=== PATIENT | female | born 1955 | race Caucasian/White ===

== ENCOUNTER 2017-08-21 17:15 | Emergency (ER) | payer BC ==
--- NOTE | 2017-08-21 17:36 | Emergency Department Record ---
History of Present Illness - General Chief complaint: Swelling of legs Stated complaint: BOTH LEG SWELLING Time Seen by Provider: 08/21/17 17:30 Source: Patient, RN notes reviewed Mode of Arrival: Ambulatory - History of Present Illness Initial comments: bilateral leg edema right worse than left and right hip replacement 7 days ago at [facility] and she was at physical therapy today first visit and came down to have her legs checked. 24 pound weight gain since surg. both knees replaced years ago. History of RA. Patient is wearing compression socks. off to exam. Pulses good Onset/Timin -: Days(s) Location: Bilateral, Lower Leg History of Same: No Radiation: None Severity scale (1-10): 2 Quality: Aching Consistency: Constant Improves with: Nothing Worsens with: Nothing Associated Symptoms: Denies other symptoms - Related Data Home Medications Medication Instructions Recorded Confirmed Last Taken Aspirin 325 mg PO BID 08/21/17 08/21/17 08/21/17 Hydrocodone/Acetaminophen [[place] 1 each PO Q4H 08/21/17 08/21/17 08/21/17 7.5-325 Tablet] Previous Rx's Medication Instructions Recorded Furosemide [Lasix] 20 mg PO DAILY #30 tablet 08/21/17 Furosemide [Lasix] 20 mg PO DAILY #30 tablet 08/21/17 Potassium Chloride 10 meq PO DAILY #30 tablet.er 08/21/17 Potassium Chloride 10 meq PO DAILY #30 tablet.er 08/21/17 Allergies Allergy/AdvReac Type Severity Reaction Status Date / Time cephalexin monohydrate Allergy RASH Verified 08/21/17 17:27 [From Keflex] erythromycin base Allergy RASH Verified 08/21/17 17:27 [Erythromycin Base] latex Allergy RASH Verified 08/21/17 17:27 Travel Screening - Travel/Exposure Within Last 30 Days Have you traveled within the last 30 days?: No Review of Systems Reviewed: No additional complaints except as noted below Constitutional: Reports: As per HPI. Denies: Chills, Fever, Malaise, Night sweats, Weakness, Weight change Eyes: Reports: As per HPI. Denies: Eye discharge, Eye pain, Photophobia, Vision change ENT: Reports: As per HPI. Denies: Congestion, Dental pain, Ear pain, Epistaxis , Hearing loss, Throat pain Respiratory: Reports: As per HPI. Denies: Cough, Dyspnea, Hemoptysis, Stridor, Wheezes Cardiovascular: Reports: As per HPI, Edema. Denies: Arrhythmia, Chest pain, Dyspnea on exertion, Murmurs, Orthopnea, Palpitations, Paroxysmal nocturnal dyspnea, Rheumatic Fever, Syncope Endocrine: Reports: As per HPI. Denies: Fatigue, Heat or cold intolerance, Polydipsia, Polyuria Gastrointestinal: Reports: As per HPI. Denies: Abdominal pain, Constipation, Diarrhea, Hematemesis, Hematochezia, Melena, Nausea, Vomiting Genitourinary: Reports: As per HPI. Denies: Abnormal menses, Discharge, Dyspareunia, Dysuria, Frequency, Hematuria, Incontinence, Retention, Urgency Musculoskeletal: Reports: As per HPI. Denies: Arthralgia, Back pain, Gout, Joint swelling, Myalgia, Neck pain Skin: Reports: As per HPI. Denies: Bruising, Change in color, Change in hair/ nails, Lesions, Pruritus, Rash Neurological: Reports: As per HPI. Denies: Abnormal gait, Confusion, Headache, Numbness, Paresthesias, Seizure, Tingling, Tremors, Vertigo, Weakness Psychiatric: Reports: As per HPI. Denies: Anxiety, Auditory hallucinations, Depression, Homicidal thoughts, Suicidal thoughts, Visual hallucinations Hematological/Lymphatic: Reports: As per HPI. Denies: Anemia, Blood Clots, Easy bleeding, Easy bruising, Swollen glands Past Medical History - SOCIAL HISTORY Smoking Status: Never smoker Alcohol Use: None Drug Use: None - RESPIRATORY Hx Respiratory Disorders: Yes Hx Asthma: Yes - CARDIOVASCULAR Hx Cardio Disorders: No - NEURO Hx Neuro Disorders: No - GI Hx GI Disorders: No - Hx Genitourinary Disorders: No - ENDOCRINE Hx Endocrine Disorders: No - MUSCULOSKELETAL Hx Musculoskeletal Disorders: Yes Hx Arthritis: Yes (RA) - PSYCH Hx Psych Problems: No - HEMATOLOGY/ONCOLOGY Hx Hematology/Oncology Disorders: Yes Hx Anemia: Yes Hx Blood Transfusions: Yes Hx Blood Transfusion Reaction: No Family Medical History Any Significant Family History?: Yes Hx Cancer: Father, Mother Hx Resp Disorders: Mother Physical Exam - General General Appearance: Alert, Oriented x3, Cooperative, No acute distress - Head Head exam: Normal inspection - Eye Eye exam: Normal appearance, PERRL Pupils: Normal accommodation - ENT ENT exam: Normal exam, Mucous membranes moist, Normal external ear exam, Normal orophraynx, TM's normal bilaterally Ear exam: Normal external inspection. negative: External canal tenderness Nasal Exam: Normal inspection. negative: Discharge, Sinus tenderness Mouth exam: Normal external inspection, Tongue normal Teeth exam: Normal inspection. negative: Dental caries Throat exam: Normal inspection. negative: Tonsillar erythema, Tonsillar exudate - Neck Neck exam: Normal inspection, Full ROM. negative: Tenderness - Respiratory Respiratory exam: Normal lung sounds bilaterally. negative: Respiratory distress - Cardiovascular Cardiovascular Exam: Regular rate, Normal rhythm, Normal heart sounds - GI/Abdominal GI/Abdominal exam: Soft, Normal bowel sounds. negative: Tenderness - Rectal Rectal exam: Deferred - exam: Deferred - Extremities Extremities exam: Normal capillary refill, Pedal edema, Tenderness - Back Back exam: Reports: Normal inspection, Full ROM. Denies: Muscle spasm, Rash noted, Tenderness - Neurological Neurological exam: Alert, Normal gait, Oriented X3, Reflexes normal - Psychiatric Psychiatric exam: Normal affect, Normal mood - Skin Skin exam: Dry, Intact, Normal color, Warm Course Vital Signs 08/21/17 17:19 Temperature 97.5 F L Pulse Rate 79 Respiratory 16 Rate Blood Pressure 119/82 Pulse Ox 99 Medical Decision Making - Data Complexity MDM Data: Labs Ordered and/or Reviewed, X-Ray Ordered and/or Reviewed (venous doplers are neg forDVTs) - Lab Data Result diagrams: 08/21/17 17:55 08/21/17 17:55 Disposition Clinical Impression: Lymphedema Edema Qualifiers: Edema type: localized Qualified Code(s): R60.0 - Localized edema Disposition: Home, Self-Care Condition: (1) Good Instructions: Leg Edema (ED) Additional Instructions: follow up with surgeon in 2-6 days or family Prescriptions: Furosemide [Lasix] 20 mg PO DAILY #30 tablet Furosemide [Lasix] 20 mg PO DAILY #30 tablet Potassium Chloride 10 meq PO DAILY #30 tablet.er Potassium Chloride 10 meq PO DAILY #30 tablet.er Forms: Patient Portal Access Time of Disposition: 18:22 Quality - Quality Measures Quality Measures: N/A - Blood Pressure Screening Does Patient Have Any of the Following: No Blood Pressure Classification: Pre-Hypertensive BP Reading Systolic Measurement: 119 Diastolic Measurement: 82 Screening for High Blood Pressure: < Pre-Hypertensive BP, F/U Documented > [ G8950] Pre-Hypertensive Follow-up Interventions: Referral to alternative/primary care provider.
[2017-08-21] MEDS: FUROSEMIDE 20 MG TABLET PO ONE (18:10)
[2017-08-21 18:11] LABS: BASO % 0.8 % (0-6); EOS % 8.3 % (0-6); HEMATOCRIT 27.7 % (35.0-47.0); LYMPH % 16.3 % (16-45); MEAN CELL VOLUME 94.5 fl (81-97); MEAN CORPUSCULAR HEMOGLOBIN 30.7 pg (27-33); MEAN CORPUSCULAR HGB CONC 32.5 g/dl (32-36); MEAN PLATELET VOLUME 8.6 fl (7.4-10.4); MONO % 8.6 % (0-9); PLATELET COUNT 395 K/uL (130-400); RED BLOOD COUNT 2.93 M/uL (3.80-5.40); RED CELL DISTRIBUTION WIDTH 12.5 % (11.5-14.5); WHITE BLOOD COUNT W/O DIFF 10.4 K/uL (4.2-12.2)
[2017-08-21 18:24] LABS: BLOOD UREA NITROGEN 26 mg/dL (8-23); CREATININE 0.7 mg/dL (0.5-0.9); EST GLOMERULAR FILTRATION RATE > 60 mL/min; GLUCOSE,RANDOM 103 mg/dL (74-109)
--- NOTE | 2017-08-22 15:53 | ULTRASOUND REPORT ---
EXAM: ULTRASOUND VENOUS DOPPLER LOWER EXT ANIA HISTORY: RECENT SURGERY, LOWER LEG SWELLING. TECHNIQUE: Sonographic evaluation of the deep venous system of the right and left lower extremity was performed with the addition of Doppler compression and augmentation. FINDINGS: There is normal bloodflow, compression, and augmentation identified in the right and left lower extremities. There is bilateral soft tissue edema. There is a questionable hematoma in the right leg. IMPRESSION: NO SONOGRAPHIC EVIDENCE OF DEEP VEIN THROMBOSIS IN THE RIGHT AND LEFT LOWER EXTREMITIES. THERE IS SOFT TISSUE SWELLING OF BOTH LOWER EXTREMITIES. JOB [facility]BER: [id number] [facility]
== END 2017-08-21 19:20 | disposition home or self-care (01) ==
LOC: ER 17:15
DX: I89.0 Lymphedema, not elsewhere classified (principal); R60.0 Localized edema; Z96.641 Presence of right artificial hip joint
CPT/HCPCS: 80048; 85025; 93970; 99283; 99284

== ENCOUNTER 2017-10-06 11:01 | Emergency (ER) | payer BC ==
--- NOTE | 2017-10-06 11:12 | Emergency Department Record ---
History of Present Illness - General Chief Complaint: Fall Injury Stated Complaint: FALL Time Seen by Provider: 10/06/17 11:07 Source: Patient Mode of Arrival: EMS Limitations: No limitations - History of Present Illness Initial Comments: 62 yp female presents to ED for evaluation of right lower extremity pain following recent YUSUF (08/14/17) and subsequent femur fracture 09/02/17. Patient reports complicatred hospital course following surgery including large femoral hematoma with subsequent blood loss (2 Liters) resulting from her fracture following hip replacement, was at [facility] until 09/17/17 for recovery following 2nd surgery. Patient reports that she elevated her RLE onto a sink to dry off her lower extremity, felt a pop to the right hip followed by pain and instability. Patient was given 200 mcg Fentanyl prior to arrival for pain, improved from 07/16 to 710. MD Complaint: Other Onset/Timin -: Minutes(s) Fall Witnessed: Yes, by family Place Fall Occurred: Home Loss of Consciousness: None Prolonged Down Time?: No Symptoms Prior to Fall: None Location: Other (RLE) Severity: Severe Quality: Aching Associated Symptoms: Denies - Leigh Coma Scale Eye Response: (4) Open spontaneously Motor Response: (6) Obeys commands Verbal Response: (5) Oriented Leigh Total: 15 - Related Data Previous Rx's Medication Instructions Recorded Furosemide [Lasix] 20 mg PO DAILY #30 tablet 08/21/17 Furosemide [Lasix] 20 mg PO DAILY #30 tablet 08/21/17 Potassium Chloride 10 meq PO DAILY #30 tablet.er 08/21/17 Potassium Chloride 10 meq PO DAILY #30 tablet.er 08/21/17 Allergies Allergy/AdvReac Type Severity Reaction Status Date / Time cephalexin monohydrate Allergy RASH Verified 10/06/17 11:13 [From Keflex] erythromycin base Allergy RASH Verified 10/06/17 11:13 [Erythromycin Base] latex Allergy RASH Verified 10/06/17 11:13 Review of Systems Constitutional: Denies: Chills, Fever, Malaise, Night sweats Eyes: Denies: Eye discharge, Eye pain ENT: Denies: Congestion, Ear pain Respiratory: Denies: Cough, Dyspnea Cardiovascular: Denies: Chest pain, Dyspnea on exertion Endocrine: Denies: Fatigue, Heat or cold intolerance Gastrointestinal: Denies: Abdominal pain, Nausea, Vomiting Genitourinary: Denies: Incontinence, Retention Musculoskeletal: Reports: Arthralgia. Denies: Back pain, Gout, Joint swelling Skin: Denies: Bruising, Change in color Neurological: Denies: Abnormal gait, Confusion, Headache, Seizure Psychiatric: Denies: Anxiety Hematological/Lymphatic: Denies: Anemia, Blood Clots Past Medical History - SOCIAL HISTORY Smoking Status: Never smoker Drug Use: None - RESPIRATORY Hx Respiratory Disorders: Yes Hx Asthma: Yes - CARDIOVASCULAR Hx Cardio Disorders: No - NEURO Hx Neuro Disorders: No - GI Hx GI Disorders: No - Hx Genitourinary Disorders: No - ENDOCRINE Hx Endocrine Disorders: No - MUSCULOSKELETAL Hx Musculoskeletal Disorders: Yes Hx Arthritis: Yes (RA) - PSYCH Hx Psych Problems: No - HEMATOLOGY/ONCOLOGY Hx Hematology/Oncology Disorders: Yes Hx Anemia: Yes Hx Blood Transfusions: Yes Hx Blood Transfusion Reaction: No Family Medical History Hx Cancer: Father, Mother Hx Resp Disorders: Mother Physical Exam - General General Appearance: Alert, Oriented x3, Cooperative, Moderate distress Limitations: No limitations - Head Head exam: Atraumatic, Normocephalic, Normal inspection Head exam detail: negative: Abrasion, Contusion, Galo's sign, General tenderness, Hematoma, Laceration - Eye Eye exam: Normal appearance. negative: Conjunctival injection, Periorbital swelling, Periorbital tenderness, Scleral icterus - ENT Ear exam: negative: Auricular hematoma, Auricular trauma Nasal Exam: negative: Active bleeding, Discharge, Dried blood, Foreign body Mouth exam: negative: Drooling, Laceration, Muffled voice, Tongue elevation - Neck Neck exam: Normal inspection. negative: Meningismus, Tenderness - Respiratory Respiratory exam: Normal lung sounds bilaterally. negative: Rales, Respiratory distress, Rhonchi, Stridor - Cardiovascular Cardiovascular Exam: Regular rate, Normal rhythm, Normal heart sounds Peripheral Pulses: 3+: Dorsalis Pedis (R) - GI/Abdominal GI/Abdominal exam: Soft. negative: Rebound, Rigid, Tenderness - Rectal Rectal exam: Deferred - exam: Deferred - Extremities Extremities exam: Tenderness, Other (TTP over right lateral hip, healking incisions x 2 to the lateral hip, shortening of the right lower extremity on examination, strong DPP). negative: Calf tenderness, Pedal edema - Back Back exam: Denies: CVA tenderness (R), CVA tenderness (L) - Neurological Neurological exam: Alert, Oriented X3. negative: Motor sensory deficit - Psychiatric Psychiatric exam: Normal affect, Normal mood - Skin Skin exam: Normal color. negative: Abrasion Type of lesion: negative: abrasion Course - Reevaluation(s) Reevaluation #1: 10/06/17 12:04 Labs reviewed, Hgb 9.9, labs are otherwise grossly unremarkable for an acute process. Radiographs right hip reviewed: Findings are c/w dislocation femoral prosthesis superiorly On-call for Dr. Malcolm jeffries for consultation. Reevaluation #2: 10/06/17 12:21 Case was discussed with Dr. Travis, would like attempt at reduction in ED. Reevaluation #3: 10/06/17 14:16 Post-reduction films appear satisfactory alignment, patient is tolerating PO, knee immobilizer applied, and appears stable for discharge at this time. Procedures - Orthopedic Joint Reduction Joint #1 Consent Obtained: Verbal consent Time Out Performed: Yes Side: Right Joint Reduction Location: Hip Analgesia: None Shoulder Technique Used (if applicable): Traction/counter-traction Technique Used: Traction/counter-traction Post-Reduction Neuro Exam: Intact Post-Reduction Vascular Exam: Intact Post Reduction X-Ray Obtained: Yes Post Reduction X-Ray Results: Reduced Splint Applied: Yes Patient Tolerated Procedure: Good - Procedural Sedation Indications: fracture/dislocation redu ASA Class: II Mallampati Airway Score: 2 Preparation: cloud security architect applied, pulse oximeter, capnometry used, supplemental O2 applied, suction/airway equipment at bedside, IV secured Midazolam: IV Midazolam Dose: 2 IV Etomidate Dose (mgs): 10 Complications: none Patient Tolerated Procedure: Good Sedation Start Date: 10/06/17 Sedation Start Time: 12:35 Sedation End Date: 10/06/17 Sedation End Time: 12:45 Medical Decision Making - Lab Data Result diagrams: 10/06/17 11:25 10/06/17 11:25 Disposition Disposition: Discharge Clinical Impression: Hip dislocation, right Qualifiers: Encounter type: initial encounter Qualified Code(s): S73.004A - Unspecified dislocation of right hip, initial encounter Disposition: Home, Self-Care Condition: (2) Stable Instructions: Hip Dislocation (ED) Additional Instructions: Return to ED if your symptoms worsen or if you have any concerns. Follow-up with Dr. Avendaño in 3-5 days as directed. Forms: Patient Portal Access Time of Disposition: 14:17 Quality - Quality Measures Quality Measures: N/A - Blood Pressure Screening Does Patient Have Any of the Following: No Blood Pressure Classification: Normal BP Reading Systolic Measurement: 101 Diastolic Measurement: 67 Screening for High Blood Pressure: < Normal BP, F/U Not Required > [G8783]
[2017-10-06] MEDS ORDERED: ONDANSETRON HCL IV 4 MG/2 ML VIAL IVP ONE (11:13)
[2017-10-06] MEDS ORDERED: HYDROMORPHONE HCL 1 MG/ML SYRINGE IVP ONE (11:13)
[2017-10-06] MEDS ORDERED: 0.9 % SODIUM CHLORIDE 1000ML 1,000 ML IV SCH (11:15)
[2017-10-06 11:32] LABS: BASO % 1.2 % (0-6); EOS % 4.7 % (0-6); GRAN % 67.8 % (47-80); HEMATOCRIT 31.4 % (35.0-47.0); HEMOGLOBIN 9.9 gm/dl (11.6-16.0); LYMPH % 16.6 % (16-45); MEAN CELL VOLUME 95.2 fl (81-97); MEAN CORPUSCULAR HGB CONC 31.5 g/dl (32-36); MEAN PLATELET VOLUME 8.8 fl (7.4-10.4); MONO % 9.7 % (0-9); PLATELET COUNT 420 K/uL (130-400); RED CELL DISTRIBUTION WIDTH 16.2 % (11.5-14.5); WHITE BLOOD COUNT W/O DIFF 6.6 K/uL (4.2-12.2)
[2017-10-06 11:42] LABS: BLOOD UREA NITROGEN 17 mg/dL (8-23); CREATININE 0.5 mg/dL (0.5-0.9); EST GLOMERULAR FILTRATION RATE > 60 mL/min
[2017-10-06 11:43] LABS: TOTAL PROTEIN 5.9 g/dL (6.6-8.7)
[2017-10-06 11:45] LABS: GLUCOSE,RANDOM 103 mg/dL (74-109)
[2017-10-06 11:48] LABS: ALB/GLOB RATIO 1.6 (1.1-1.8); ALBUMIN 3.6 g/dL (4.0-5.0); ALKALINE PHOSPHATASE 82 U/L (35-104); ALT/SGPT 15 U/L (<33); AST/SGOT 19 U/L (10.0-35.0)
[2017-10-06] MEDS ORDERED: DIAZEPAM 5 MG TABLET PO ONE (12:01)
[2017-10-06] MEDS ORDERED: ETOMIDATE 20MG/10ML VIAL IVP ONE (12:29)
[2017-10-06] MEDS ORDERED: MIDAZOLAM HCL 2MG/2ML VIAL IV ONE (12:29)
--- NOTE | 2017-10-08 00:32 | RADIOLOGY REPORT ---
EXAM: HIP,UNILAT, 2-3 VIEW RIGHT HISTORY: RIGHT HIP DISLOCATION AND PAIN. STATUS POST RIGHT HIP ARTHROPLASTY. TECHNIQUE: An AP view of the pelvis and AP and lateral views of the right hip were obtained. COMPARISON: None. ENCOUNTER: Initial. FINDINGS: The patient is status post right hip arthroplasty. There is superior dislocation of the femoral prosthesis. There is no visible associated fracture. The bony pelvis appears intact. IMPRESSION: SUPERIOR DISLOCATION OF THE RIGHT HIP PROSTHESIS WITH NO VISIBLE ASSOCIATED FRACTURE. JOB NUMBER: [id number] [facility]
--- NOTE | 2017-10-08 00:42 | RADIOLOGY REPORT ---
EXAM: HIP,UNILAT, 2-3 VIEW RIGHT HISTORY: RIGHT HIP DISLOCATION. POSTREDUCTION VIEWS. TECHNIQUE: An AP view of the pelvis and AP and lateral views of the right hip were obtained. COMPARISON: 10/06/2017. FINDINGS: There has been successful reduction of the previously noted right hip dislocation. There is no associated fracture. The prosthesis appears normal. IMPRESSION: SUCCESSFUL REDUCTION OF THE RIGHT HIP PROSTHESIS. JOB NUMBER: [id number] [facility]
== END 2017-10-06 14:35 | disposition home or self-care (01) ==
LOC: ER 11:01
DX: T84.020A Dislocation of internal right hip prosthesis, initial encounter (principal); Y79.2 Prosthetic and other implants, materials and accessory orthopedic devices associated with adverse incidents; X50.0XXA Overexertion from strenuous movement or load, initial encounter; Y92.009 Unspecified place in unspecified non-institutional (private) residence as the place of occurrence of the external cause; Z96.641 Presence of right artificial hip joint
CPT/HCPCS: 99152 ×2; 27265 ×2; 99284 ×2; 96374; 96375; 85025; 80053; 73502; J3490; J2405; J1170; J7030

== ENCOUNTER 2017-10-27 23:55 | Emergency (ER) | payer BC ==
--- NOTE | 2017-10-28 00:06 | Emergency Department Record ---
History of Present Illness - General Chief complaint: Lower Extremity Pain Stated complaint: HIP INJURY Time Seen by Provider: 10/27/17 23:59 Source: Patient, Family Mode of Arrival: EMS Limitations: No limitations - History of Present Illness Initial comments: 62 yo female presents with likely dislocation of the right hip. She reports she was rolling over in bed and felt the hip pop out. She has a history of Hip replacement as well as fracture in August 2017. She had the same hip dislocate October 06. Her surgeon is from [facility]. No numbness or tingling. She has been NPO since 8pm. MD Complaint: Extremity pain, Joint pain -: Minutes(s) Location: Right History of Same: Yes -: Yes Arthralgia Radiation: Proximal Quality: Aching Consistency: Constant Improves with: Nothing Worsens with: Palpation, Weight bearing Associated Symptoms: Denies other symptoms - Related Data Previous Rx's Medication Instructions Recorded Furosemide [Lasix] 20 mg PO DAILY #30 tablet 08/21/17 Furosemide [Lasix] 20 mg PO DAILY #30 tablet 08/21/17 Potassium Chloride 10 meq PO DAILY #30 tablet.er 08/21/17 Potassium Chloride 10 meq PO DAILY #30 tablet.er 08/21/17 Allergies Allergy/AdvReac Type Severity Reaction Status Date / Time cephalexin monohydrate Allergy RASH Verified 10/06/17 11:13 [From Keflex] erythromycin base Allergy RASH Verified 10/06/17 11:13 [Erythromycin Base] latex Allergy RASH Verified 10/06/17 11:13 Review of Systems Constitutional: Denies: Chills, Fever, Malaise, Weakness Eyes: Denies: Eye discharge ENT: Denies: Congestion, Throat pain Respiratory: Denies: Cough, Dyspnea, Hemoptysis, Wheezes Cardiovascular: Denies: Chest pain, Syncope Endocrine: Denies: Fatigue Gastrointestinal: Denies: Abdominal pain, Diarrhea, Nausea, Vomiting Genitourinary: Denies: Dysuria, Urgency Musculoskeletal: Reports: As per HPI, Arthralgia Skin: Denies: Bruising, Change in color, Rash Neurological: Denies: Confusion, Headache, Numbness, Tingling, Weakness Psychiatric: Denies: Anxiety Hematological/Lymphatic: Denies: Easy bleeding, Easy bruising Past Medical History - SOCIAL HISTORY Smoking Status: Never smoker Drug Use: None - RESPIRATORY Hx Respiratory Disorders: Yes Hx Asthma: Yes - CARDIOVASCULAR Hx Cardio Disorders: No - NEURO Hx Neuro Disorders: No - GI Hx GI Disorders: No - Hx Genitourinary Disorders: No - ENDOCRINE Hx Endocrine Disorders: No - MUSCULOSKELETAL Hx Musculoskeletal Disorders: Yes Hx Arthritis: Yes (RA) - PSYCH Hx Psych Problems: No - HEMATOLOGY/ONCOLOGY Hx Hematology/Oncology Disorders: Yes Hx Anemia: Yes Hx Blood Transfusions: Yes Hx Blood Transfusion Reaction: No Family Medical History Hx Cancer: Father, Mother Hx Resp Disorders: Mother Physical Exam - General General Appearance: Alert, Oriented x3, Cooperative, No acute distress Limitations: No limitations - Head Head exam: Atraumatic, Normal inspection - Eye Eye exam: Normal appearance, PERRL - ENT ENT exam: Normal exam, Mucous membranes moist Ear exam: Normal external inspection Nasal Exam: Normal inspection Mouth exam: Normal external inspection Teeth exam: Normal inspection Throat exam: Normal inspection - Neck Neck exam: Normal inspection, Full ROM. negative: Tenderness - Respiratory Respiratory exam: Normal lung sounds bilaterally. negative: Accessory muscle use, Decreased breath sounds, Respiratory distress, Rhonchi, Stridor, Wheezes - Cardiovascular Cardiovascular Exam: Regular rate, Normal rhythm, Normal heart sounds - GI/Abdominal GI/Abdominal exam: Soft. negative: Tenderness - Rectal Rectal exam: Deferred - exam: Deferred - Extremities Extremities exam: Normal capillary refill, Tenderness (right hip, leg shortened) . negative: Normal inspection, Full ROM, Pedal edema - Back Back exam: Denies: CVA tenderness (R), CVA tenderness (L) - Neurological Neurological exam: Alert, Oriented X3. negative: Altered, Motor sensory deficit - Psychiatric Psychiatric exam: Normal affect, Normal mood - Skin Skin exam: Dry, Intact, Normal color, Warm Course - Reevaluation(s) Reevaluation #1: 10/28/17 00:04 EMR reviewed Prior XR [id number] 10/28/17 00:25 consent signed for sedation and closed reduction The XR was reviewed with superior dislocation 10/28/17 00:25 10/28/17 00:51 Procedure Closed Reduction of the right Hip Sedation provided Start Time 0035 End Time 0050 Gentle hip flexion and traction provided with clinic reduction, return of ROM and length. XR ordered 10/28/17 01:04 The post reduction XR ws reviewed with satisfactory reduction She is completely alert, awake with no pain. She tolerated the sedation very well. 10/28/17 01:23 The patient ambulated well DC home Medical Decision Making - Lab Data Result diagrams: 10/27/17 23:40 10/27/17 23:40 Disposition Disposition: Discharge Clinical Impression: Hip dislocation, right Qualifiers: Encounter type: initial encounter Qualified Code(s): S73.004A - Unspecified dislocation of right hip, initial encounter Disposition: Home, Self-Care Condition: (1) Good Instructions: Hip Dislocation (ED) Additional Instructions: Call your orthopedic doctor tomorrow to discuss your recurrent hip dislocation Continue to follow all precautions for your hip Forms: Patient Portal Access Time of Disposition: 01:05 Quality - Quality Measures Quality Measures: N/A - Blood Pressure Screening Does Patient Have Any of the Following: No Blood Pressure Classification: Pre-Hypertensive BP Reading Systolic Measurement: 134 Diastolic Measurement: 87 Screening for High Blood Pressure: < Pre-Hypertensive BP, F/U Documented > [ G8950] Pre-Hypertensive Follow-up Interventions: Referral to alternative/primary care provider.
[2017-10-28 00:07] LABS: BASO % 1.1 % (0-6); EOS % 8.5 % (0-6); GRAN % 58.4 % (47-80); HEMATOCRIT 28.5 % (35.0-47.0); HEMOGLOBIN 9.3 gm/dl (11.6-16.0); LYMPH % 21.6 % (16-45); MEAN CELL VOLUME 92.8 fl (81-97); MEAN CORPUSCULAR HGB CONC 32.6 g/dl (32-36); MEAN PLATELET VOLUME 8.8 fl (7.4-10.4); MONO % 10.4 % (0-9); PLATELET COUNT 559 K/uL (130-400); RED BLOOD COUNT 3.07 M/uL (3.80-5.40); RED CELL DISTRIBUTION WIDTH 16.2 % (11.5-14.5)
[2017-10-28 00:08] LABS: MEAN CORPUSCULAR HEMOGLOBIN 30.2 pg (27-33)
[2017-10-28 00:16] LABS: BLOOD UREA NITROGEN 21 mg/dL (8-23); CREATININE 0.6 mg/dL (0.5-0.9); EST GLOMERULAR FILTRATION RATE > 60 mL/min
[2017-10-28 00:19] LABS: GLUCOSE,RANDOM 124 mg/dL (74-109)
[2017-10-28 00:20] LABS: INR 0.99; PARTIAL THROMBOPLASTIN TIME 29.6 SECONDS (24.5-39.1); PROTHROMBIN TIME (PATIENT) 10.7 SECONDS (9.5-12.1)
[2017-10-28] MEDS ORDERED: MIDAZOLAM HCL 2MG/2ML VIAL IV ONE ×2 (00:22→00:56)
[2017-10-28] MEDS ORDERED: ETOMIDATE 20MG/10ML VIAL IVP ONE (00:22)
[2017-10-28] MEDS ORDERED: FENTANYL PF 100MCG/2ML VIAL IVP ONE ×2 (00:57)
--- NOTE | 2017-10-28 08:31 | RADIOLOGY REPORT ---
EXAM: RIGHT HIP HISTORY: DISLOCATED RIGHT HIP, PAIN WITH LIMITED MOTION OF THE RIGHT HIP. TECHNIQUE: Two AP views of the right hip were obtained. Comparison: Post reduction right hip series dated 10/06/17. Encounter: Initial. FINDINGS: There is superior dislocation of the femoral component of the right YUSUF. No associated fracture identified. IMPRESSION: SUPERIOR DISLOCATION OF THE FEMORAL COMPONENT OF THE RIGHT YUSUF. JOB NUMBER: [id number] [facility]
--- NOTE | 2017-10-28 09:10 | RADIOLOGY REPORT ---
EXAM: RIGHT HIP HISTORY: POST REDUCTION EVALUATION RIGHT HIP. TECHNIQUE: AP and lateral views of the right hip were obtained. Comparison: Right hip series from earlier this morning on 10/28/17 at 12:19 a.m. Encounter: Initial. FINDINGS: Since the prior exam the previously dislocated femoral component of the right YUSUF has been reduced. The tip of the femoral component is not included on the AP view, but no associated fracture identified. IMPRESSION: REDUCTION IN THE PREVIOUSLY SEEN DISLOCATION OF THE FEMORAL COMPONENT OF THE RIGHT YUSUF. JOB NUMBER: [id number] [facility]
== END 2017-10-28 01:44 | disposition home or self-care (01) ==
LOC: ER 23:55
DX: T84.020A Dislocation of internal right hip prosthesis, initial encounter (principal); M06.9 Rheumatoid arthritis, unspecified; X50.0XXA Overexertion from strenuous movement or load, initial encounter; Z96.641 Presence of right artificial hip joint
CPT/HCPCS: 27265; 80048; 85025; 85610; 85730; 96374; 96375; 96376; 99284

== ENCOUNTER 2017-12-14 19:31 | Emergency (ER) | payer BC ==
[2017-12-14] MEDS ORDERED: HYDROMORPHONE HCL 2 MG/ML VIAL IVP ONE ×3 (19:42→20:30)
--- NOTE | 2017-12-14 20:01 | Emergency Department Record ---
History of Present Illness - General Chief complaint: Pain Stated complaint: HIP INJURY Time Seen by Provider: 12/14/17 19:41 Source: Patient Mode of Arrival: EMS Limitations: No limitations - History of Present Illness Initial comments: The patient is here due to dislocating her R hip about an hour ago. She has a hx of R hip replacement 6 months ago and has had 2 dislocations since. Tonight she was sitting and then was getting up from the sitting position and felt the hip pop out. She denies any fall or trauma. MD Complaint: Extremity pain Onset/Timin -: Hour(s) Location: Right History of Same: Yes - Related Data Home Medications Medication Instructions Recorded Confirmed Last Taken Morphine Sulfate [Morphine Sulfate 30 mg PO Q12H 12/14/17 12/14/17 12/14/17 ER] Trazodone HCl 50 mg PO QHS PRN 12/14/17 12/14/17 Unknown Allergies Allergy/AdvReac Type Severity Reaction Status Date / Time cephalexin monohydrate Allergy RASH Verified 10/06/17 11:13 [From Keflex] erythromycin base Allergy RASH Verified 10/06/17 11:13 [Erythromycin Base] latex Allergy RASH Verified 10/06/17 11:13 Travel Screening - Travel/Exposure Within Last 30 Days Have you traveled within the last 30 days?: No - Travel Symptoms Symptom Screening: None Review of Systems Constitutional: Denies: Chills, Fever Past Medical History - SOCIAL HISTORY Smoking Status: Never smoker Alcohol Use: None Drug Use: None - RESPIRATORY Hx Respiratory Disorders: Yes Hx Asthma: Yes - CARDIOVASCULAR Hx Cardio Disorders: No - NEURO Hx Neuro Disorders: No - GI Hx GI Disorders: No - Hx Genitourinary Disorders: No - ENDOCRINE Hx Endocrine Disorders: No - MUSCULOSKELETAL Hx Musculoskeletal Disorders: Yes Hx Arthritis: Yes (RA) - PSYCH Hx Psych Problems: No - HEMATOLOGY/ONCOLOGY Hx Hematology/Oncology Disorders: Yes Hx Anemia: Yes Hx Blood Transfusions: Yes Hx Blood Transfusion Reaction: No Family Medical History Any Significant Family History?: Yes Hx Cancer: Father, Mother Hx Resp Disorders: Mother Physical Exam - General General Appearance: Alert, Oriented x3, Cooperative, No acute distress - Head Head exam: Atraumatic, Normocephalic, Normal inspection - Eye Eye exam: Normal appearance, PERRL - Neck Neck exam: Normal inspection, Full ROM. negative: Tenderness - Respiratory Respiratory exam: Normal lung sounds bilaterally. negative: Respiratory distress - Cardiovascular Cardiovascular Exam: Regular rate, Normal rhythm, Normal heart sounds - GI/Abdominal GI/Abdominal exam: Soft, Normal bowel sounds. negative: Tenderness - Extremities Extremities exam: Other (The R leg is NVI.). negative: Normal inspection Course Vital Signs 12/14/17 19:37 Temperature 97.9 F Pulse Rate [ 127 H Pulse Ox Probe] Respiratory 24 Rate Blood Pressure 123/96 [Right Arm] Pulse Ox 100 - Reevaluation(s) Reevaluation #1: Due to the difficulty with completing the procedure here at [facility] I did recommend transfer to [facility]. I did discuss the case with the ER and the patient was accepted by Dr. Contreras for an ER to ER transfer. 12/14/17 20:31 Medical Decision Making - Data Complexity MDM Data: X-Ray Ordered and/or Reviewed (R hip: R hip dislocation.) Disposition Disposition: Discharge Clinical Impression: Hip dislocation, right Qualifiers: Encounter type: initial encounter Qualified Code(s): S73.004A - Unspecified dislocation of right hip, initial encounter Disposition: Acute Care Hospital Transfer Transfer To: [facility] Reason For Transfer: Ortho Accepting Physician: Timothy Time Discussed w/Accepting Physician: 20:28 Condition: (2) Stable Forms: Patient Portal Access Time of Disposition: 20:28 Quality - Quality Measures Quality Measures: N/A - Blood Pressure Screening View Details: Yes Does Patient Have Any of the Following: No Blood Pressure Classification: Normal BP Reading Systolic Measurement: 112 Diastolic Measurement: 62 Screening for High Blood Pressure: < Normal BP, F/U Not Required > [G8783]
--- NOTE | 2017-12-16 08:22 | RADIOLOGY REPORT ---
EXAM: RIGHT HIP WITH PELVIS HISTORY: RIGHT HIP DISLOCATION. TECHNIQUE: A single portable frontal view of the right hip was performed. Comparison: 10/28/17. FINDINGS: The patient is status post right total hip arthroplasty. There is superior dislocation of the femoral prosthesis. There is no visible associated fracture. IMPRESSION: SUPERIOR DISLOCATION OF THE RIGHT HIP PROSTHESIS WITH NO VISIBLE FRACTURE. JOB NUMBER: [id number] MTDD
== END 2017-12-14 20:45 | disposition short-term general hospital (02) ==
LOC: ER 19:31
DX: T84.020A Dislocation of internal right hip prosthesis, initial encounter (principal)
CPT/HCPCS: 99285 ×2; 96376; 96374; 72170; J1170

== ENCOUNTER 2018-02-28 10:05 | Day surgery (SDC) | payer BC ==
[2018-02-28] MEDS ORDERED: PROPOFOL 10 MG/ML VIAL IV ONE (10:06)
[2018-02-28] MEDS ORDERED: LIDOCAINE 2% MDV (20MG/ML) 20ML VIAL IV ONE (10:06)
[2018-02-28] MEDS ORDERED: FENTANYL PF 100MCG/2ML VIAL IV ONE (10:06)
--- NOTE | 2018-03-04 12:30 | Operative Note ---
DATE OF SURGERY: 02/28/2018 SURGEON: Jazlyn Veras MD OPERATION: ESOPHAGOGASTRODUODENOSCOPY. INDICATIONS: This is a 63-year-old female with history of intermittent episodes of dysphagia who presented for esophagogastroduodenoscopy. POSTOPERATIVE DIAGNOSES: 1. Normal esophagus with no specific strictures, status post dilatation with Moreno to a 60 Beninese. 2. Mild gastritis. 3. Normal duodenum. ANESTHESIA: Sedation is per Anesthesia. Pulse oximetry was monitored throughout the procedure to maintain O2 saturation of 90% or greater. Supplemental oxygen was administered via nasal cannula. Cardiac and vital signs were monitored throughout the duration of the procedure, and they were stable. The procedure of esophagogastroduodenoscopy and risks and benefits of the procedure, including the risk of bleeding and perforation, among others, were explained to the patient who voiced understanding and agreed to have the procedure done. Physical examination was performed, and the patient was found stable for sedation. PROCEDURE: The patient was placed in the left lateral position. Sedation was initiated. A plastic bite block was inserted into the oral cavity. The Olympus [id number] gastroscope was introduced into the oral cavity and advanced to the proximal esophagus without difficulty. The esophageal mucosa was carefully examined upon introduction of the gastroscope. The proximal and mid and distal esophageal mucosa appeared normal. The gastroscope was then advanced into the stomach, and surveillance of the stomach revealed mild erythema along the gastric body and antrum but no ulcerations were noted. The gastroscope was then advanced to the descending duodenum without difficulty. The duodenal bulb and descending duodenum appeared normal. The gastroscope was then withdrawn into the stomach and retroflexion was performed. There were no other lesions noted. The gastroscope was then straightened and withdrawn while carefully examining the gastric and esophageal mucosa. No other lesions noted. Multiple gastric and mid esophageal biopsies were obtained to rule out eosinophilic esophagitis. Next a Moreno dilator size 60 Beninese was then passed into the stomach with minimal resistance. The Moreno dilator was then withdrawn and procedure was terminated. The patient tolerated the procedure well without immediate complications. The patient remained with stable vital signs and was transferred to the recovery room. RECOMMENDATIONS: 1. We will follow up on the biopsies. 2. She is to continue her proton pump inhibitors. 3. I will be happy to see her back in the office as needed. Thank you for allowing me to participate in the care of your patient. CC: José Miguel Costa MD [facility] HOSPITALRenate
== END 2018-02-28 11:23 | disposition home or self-care (01) ==
LOC: HOP 10:05
PROVIDERS: ATTEND Internal Medicine Gastroenterology
DX: R13.10 Dysphagia, unspecified (principal); K21.9 Gastro-esophageal reflux disease without esophagitis; M06.9 Rheumatoid arthritis, unspecified; J45.909 Unspecified asthma, uncomplicated; K29.70 Gastritis, unspecified, without bleeding
CPT/HCPCS: 43235; 00731; J3010

== ENCOUNTER 2018-06-30 13:05 | Emergency (ER) | payer MEDICARE, BC ==
--- NOTE | 2018-06-30 13:48 | Emergency Department Record ---
History of Present Illness - General Chief Complaint: Cough Stated Complaint: COUGH,CONGESTION Time Seen by Provider: 06/30/18 13:11 Source: Patient Mode of Arrival: Ambulatory Limitations: No limitations - History of Present Illness Initial Comments: The patient is here due to a cough, congestion and mild SOB for 4-5 days. She now does have a productive cough with colored sputum. There is no reported fever , chills, Cp or SOB presently. She does have a hx of Asthma and does feel like the infection is triggering it. MD Complaint: Cough, Nasal congestion Onset/Timin -: Days(s) Severity: Mild - Related Data Home Medications Medication Instructions Recorded Confirmed Last Taken Ibuprofen [Motrin] 800 mg PO Q8H PRN 06/30/18 06/30/18 06/30/18 Oxycodone HCl/Acetaminophen 1 tab PO Q6H PRN 06/30/18 06/30/18 06/30/18 [Oxycodone/Acetaminophen 5mg/325mg] Previous Rx's Medication Instructions Recorded Doxycycline Monohydrate [Mondoxyne 100 mg PO BID #14 capsule 06/30/18 Nl] Prednisone [Prednisone 20Mg] 40 mg PO DAILY #10 tab 06/30/18 Allergies Allergy/AdvReac Type Severity Reaction Status Date / Time cephalexin monohydrate Allergy RASH Verified 06/30/18 13:22 [From Keflex] erythromycin base Allergy RASH Verified 06/30/18 13:22 [Erythromycin Base] latex Allergy RASH Verified 06/30/18 13:22 Travel Screening - Travel/Exposure Within Last 30 Days Have you traveled within the last 30 days?: No - Travel/Exposure Within Last Year Have you traveled outside the [place] in the last year?: No - Additonal Travel Details Have you been exposed to anyone with a communicable illness?: No - Travel Symptoms Symptom Screening: None Review of Systems Constitutional: Denies: Chills, Fever Eyes: Denies: Eye discharge ENT: Reports: Congestion Respiratory: Reports: Cough. Denies: Dyspnea, Hemoptysis Past Medical History - SOCIAL HISTORY Smoking Status: Never smoker Alcohol Use: None Drug Use: None - RESPIRATORY Hx Respiratory Disorders: Yes Hx Asthma: Yes Hx Bronchitis: Yes Hx Pneumonia: Yes (2017) - CARDIOVASCULAR Hx Cardio Disorders: No - NEURO Hx Neuro Disorders: Yes Hx Headaches: Yes - GI Hx GI Disorders: Yes Hx Reflux: Yes - Hx Genitourinary Disorders: No - ENDOCRINE Hx Endocrine Disorders: No - MUSCULOSKELETAL Hx Musculoskeletal Disorders: Yes Hx Arthritis: Yes (RA) - PSYCH Hx Psych Problems: No - HEMATOLOGY/ONCOLOGY Hx Hematology/Oncology Disorders: Yes Hx Anemia: Yes Hx Blood Transfusions: Yes Hx Blood Transfusion Reaction: No Family Medical History Any Significant Family History?: No Hx Cancer: Father, Mother Hx Resp Disorders: Mother Physical Exam - General General Appearance: Alert, Oriented x3, Cooperative, No acute distress - Head Head exam: Atraumatic, Normocephalic, Normal inspection - Eye Eye exam: Normal appearance, PERRL, EOMI - Neck Neck exam: Normal inspection, Full ROM. negative: Tenderness - Respiratory Respiratory exam: Normal lung sounds bilaterally. negative: Respiratory distress - Cardiovascular Cardiovascular Exam: Regular rate, Normal rhythm, Normal heart sounds - GI/Abdominal GI/Abdominal exam: Soft, Normal bowel sounds. negative: Tenderness - Extremities Extremities exam: negative: Normal inspection (Patient just had rotater cuff surgery.) - Neurological Neurological exam: Alert. negative: Motor sensory deficit Course Vital Signs 06/30/18 13:08 Temperature 97.4 F L Pulse Rate 78 Respiratory 16 Rate Blood Pressure 149/99 Pulse Ox 99 - Reevaluation(s) Reevaluation #1: I did discuss the need to prescribe an oral Abx and a short course of Prednisone. She is to see her PCP if not better in 3 days. 06/30/18 13:53 Disposition Disposition: Discharge Clinical Impression: Asthma attack Qualifiers: Asthma severity: mild Asthma persistence: unspecified Qualified Code(s): J45.901 - Unspecified asthma with (acute) exacerbation Disposition: Home, Self-Care Condition: (2) Stable Instructions: Asthma (ED) Additional Instructions: The patient is to take the Doxycycline along with the Prednisone as directed. She is to continue her inhallers. She is to see her PCP in 3-4 days if not better and return to the ER for any worsening symptoms. Prescriptions: Doxycycline Monohydrate [Mondoxyne Nl] 100 mg PO BID #14 capsule Prednisone [Prednisone 20Mg] 40 mg PO DAILY #10 tab Forms: Patient Portal Access Time of Disposition: 13:48 Quality - Quality Measures Quality Measures: N/A - Blood Pressure Screening View Details: Yes Does Patient Have Any of the Following: No Blood Pressure Classification: Pre-Hypertensive BP Reading Systolic Measurement: 140 Diastolic Measurement: 87 Screening for High Blood Pressure: < Pre-Hypertensive BP, F/U Documented > [ G8950] Pre-Hypertensive Follow-up Interventions: Referral to alternative/primary care provider.
== END 2018-06-30 14:17 | disposition home or self-care (01) ==
LOC: ER 13:05
DX: J45.901 Unspecified asthma with (acute) exacerbation (principal); R06.02 Shortness of breath
CPT/HCPCS: 99282